=== PATIENT | male | born 2000 | race Caucasian/White ===

== ENCOUNTER 2020-11-05 12:45 | Emergency (ER) | payer BC, MEDICAID ==
--- NOTE | 2020-11-05 13:36 | ERPHSYRPT ---
- History of Present Illness Time Seen by Provider: 11/05/20 12:49 Source: patient, family Exam Limitations: no limitations Patient Subjective Stated Complaint: fever, body aches Triage Nursing Assessment: . Physician History: 19 years old is sent in ER from work for evaluation and Covid testing. Patient report he was having low-grade fever yesterday 100.6 with mild body aches. He went back to work today and had a fever of 101 which is improved to 99 on presentation. Denies any cough or shortness of breath. No headache. Does have some sinus congestion. His sister and friend both tested positive few days ago and he was around them. No abdominal pain nausea or vomiting. Timing/Duration: yesterday, gradual onset, improved Severity: mild Modifying Factors: Improves With: nothing Associated Symptoms: fever, malaise, weakness, No nausea, No vomiting, No shortness of breath, No cough, No headaches, No rash Allergies/Adverse Reactions: No Known Drug Allergies Allergy (Verified 11/05/20 12:59) Home Medications: No Reportable Medications [No Reported Medications] 11/05/20 [History] Hx Tetanus, Diphtheria Vaccination/Date Given: Yes Hx Influenza Vaccination/Date Given: Yes Hx Pneumococcal Vaccination/Date Given: No Immunizations Up to Date: Yes Travel Risk - International Travel Have you traveled outside of the country in past 3 weeks: No - Coronavirus Screening Symptoms: Fever, Headaches/Body Aches/Fatigue Close contact with a COVID-19 positive Pt in past 14-21 Days: Yes - Vaccine Status Have you recieved a Covid-19 vaccination: No - Review of Systems Constitutional: Fever, Fatigue Eyes: No Symptoms Ears, Nose, & Throat: Nose Congestion Respiratory: No Symptoms Cardiac: No Symptoms Abdominal/Gastrointestinal: No Symptoms Genitourinary Symptoms: No Symptoms Musculoskeletal: Myalgias Skin: No Symptoms Neurological: No Symptoms Psychological: No Symptoms Endocrine: No Symptoms - Past Medical History Pertinent Past Medical History: Yes Neurological History: No Pertinent History Cardiac History: No Pertinent History Respiratory History: No Pertinent History Endocrine Medical History: No Pertinent History Musculoskeletal History: No Pertinent History History: Other Other Medical History: cranial surgery, spinal surgery as a - Past Surgical History Past Surgical History: Yes Neuro Surgical History: Other Gastrointestinal: Appendectomy Other Surgical History: crainal surgery and spinal surgery - Social History Smoking Status: Never smoker Exposure to second hand smoke: No Drug Use: marijuana Patient Lives Alone: No - Nursing Vital Signs Nursing Vital Signs: Initial Vital Signs Temperature 99 F 11/05/20 12:51 Pulse Rate 97 H 11/05/20 12:51 Respiratory Rate 20 11/05/20 12:51 Blood Pressure 136/69 11/05/20 12:51 O2 Sat by Pulse Oximetry 99 11/05/20 12:51 Pain Scale Pain Intensity 0 - Physical Exam General Appearance: no apparent distress, alert Eye Exam: eyes nml inspection Ears, Nose, Throat Exam: normal ENT inspection, pharynx normal Neck Exam: normal inspection, non-tender, supple, full range of motion Respiratory Exam: normal breath sounds, lungs clear Cardiovascular Exam: regular rate/rhythm, normal heart sounds Gastrointestinal/Abdomen Exam: soft, normal bowel sounds, No tenderness Extremity Exam: normal inspection, normal range of motion Neurologic Exam: alert, oriented x 3, cooperative Skin Exam: normal color SpO2 Interpretation: normal SpO2: 99 O2 Delivery: Room Air - Progress Progress: unchanged Progress Note: 11/05/20 13:34 Covid testing is obtained, results pending, recommended contact/droplet precautions until results are back. I offer during chest x-ray but patient/mother does not want it and I think it is reasonable he is not in any distress at all. Recommended using Tylenol as needed for fever control, body aches and drinking plenty of fluids. Discussed signs symptoms of worsening needing return to ER which he seems understanding Counseled pt/family regarding: diagnosis, need for follow-up - Departure Departure Disposition: Home Clinical Impression: Viral syndrome Condition: Stable Critical Care Time: No Referrals: IVET GRANT [Primary Care Provider] - Follow Up with PCP/3 days Instructions: Fever, Adult (DC) Additional Instructions: Use Tylenol as needed for fever control and body aches. Drink plenty of fluids. Use contact/droplet precautions until your Covid test is back. Return to ER for high-grade fever, cough shortness of breath/worsening weakness.
[2020-11-05 13:58] VITALS: BP 125/70; PULSE 94; O2SAT 97
== END 2020-11-05 13:50 | disposition home or self-care (01) ==
LOC: ED 12:45
DX: B34.9 Viral infection, unspecified (principal)
CPT/HCPCS: 99283; U0003